=== PATIENT | female | born 1955 | race Caucasian/White ===

== ENCOUNTER 2017-05-16 08:46 | Outpatient (CLI) | payer BC | END 2017-05-16 08:47 | disposition home or self-care (01) | LOC: BICMAMMO 08:46 | PROVIDERS: ATTEND Family Medicine | DX: N63.10 Unspecified lump in the right breast, unspecified quadrant (principal) | CPT/HCPCS: 77066; G0279 ==

== ENCOUNTER 2018-09-18 13:08 | Outpatient (CLI) | payer BC ==
--- NOTE | 2018-09-18 14:11 | CT ---
Exam: Abdomen CT without contrast Pelvic CT without contrast History: Diverticulitis. Pain. FINDINGS: Abdomen CT: Calcified granuloma in the right lower lobe. Limited evaluation of the aorta due to lack of IV contrast. No evidence of aneurysm. Limited evaluation of the solid organs by the lack of IV contrast. Calcified granulomas are noted in the liver and spleen. Pancreas is unremarkable. Symmetric attenuation of the adrenal glands. No gastrohepatic, retrocrural or periportal lymphadenopathy. No mesenteric mass, lymphadenopathy, free air or free fluid. Limited evaluation of the alimentary canal by the lack of oral contrast. No evidence of small bowel o bstruction. Ileocecal junction is normal. Normal caliber appendix. Scattered fecal material in a nondistended, nondilated colon. Diverticulosis, without evidence of diverticulitis Symmetric attenuation the kidneys. There is moderate dilatation of the right renal pelvis and right r enal calyces. Abrupt transition at the right uteropelvic junction. Right ureter is decompressed without evidence of ureteral calculi. There is a left extrarenal pelvis which is mildly prominent. Th ere is mild dilatation of the left renal calyces. There is abrupt transition at the left ureteropelvic junction. Left ureter is unremarkable and decompressed CT PELVIS: No calcifications in the urinary bladder. No mass, lymphadenopathy, free air or free fluid . Hysterectomy changes are noted. No lytic or blastic lesions in the osseous structures IMPRESSION: Bilateral hydronephrosis, right greater than left. Abrupt transition at the ureteropelvic junction bilaterally. Further evaluation with urology consultation and retrograde IVP may be beneficial. Transcribed Date/Time: 09/18/2018 2:15 PM
== END 2018-09-18 13:09 | disposition home or self-care (01) ==
LOC: SCSCT 13:08
PROVIDERS: ATTEND Family Medicine
DX: R10.84 Generalized abdominal pain (principal); N13.30 Unspecified hydronephrosis
CPT/HCPCS: 74176

== ENCOUNTER 2019-02-19 14:48 | Outpatient (CLI) | payer OTHER, SELFPAY ==
--- NOTE | 2019-02-19 15:37 | MMO ---
Bilateral MAMMO Bilat Screen [facility]. CLINICAL HISTORY: Patient is 63 years old and is seen for screening. The patient has no family history of breast cancer. The patient has no personal history of cancer. VIEWS: The views performed were: bilateral craniocaudal with tomosynthesis and bilateral mediolateral oblique with tomosynthesis. FILMS COMPARED: The present examination has been compared to prior imaging studies performed at [facility] on 04/04/2013, 04/08/2015, 04/05/2016 and 05/16/2017. This study has been interpreted with the assistance of computer-aided detection. MAMMOGRAM FINDINGS: There are scattered fibroglandular densities. Finding 1: There is a stable oval mass with circumscribed margins seen in the right breast. The mass represents a hamartoma. Finding 2: There are benign appearing calcifications seen in both breasts. There are no suspicious masses, suspicious calcifications, or new areas of architectural distortion. IMPRESSION: THERE IS NO MAMMOGRAPHIC EVIDENCE OF MALIGNANCY. A ROUTINE FOLLOW-UP MAMMOGRAM IN 1 YEAR IS RECOMMENDED. THE RESULTS OF THIS EXAM WERE SENT TO THE PATIENT. ACR BI-RADS Category 2 - Benign finding MAMMOGRAPHY NOTE: 1. A negative mammogram report should not delay a biopsy if a dominant of clinically suspicious mass is present. 2. Approximately 10% to 15% of breast cancers are not detected by mammography. 3. Adenosis and dense breasts may obscure an underlying neoplasm. Reported by: WALE FALK MD Electonically Signed: [id number]
== END 2019-02-19 14:49 | disposition home or self-care (01) ==
LOC: BICMAMMO 14:48
PROVIDERS: ATTEND Family Medicine
DX: Z12.31 Encounter for screening mammogram for malignant neoplasm of breast (principal)
CPT/HCPCS: 77063; 77067

== ENCOUNTER 2021-02-22 13:03 | Outpatient (CLI) | payer MEDICARE, OTHER | END 2021-02-22 13:04 | disposition home or self-care (01) | LOC: BICRAD 13:03 | PROVIDERS: ATTEND Family Medicine | DX: J20.9 Acute bronchitis, unspecified (principal) | CPT/HCPCS: 71046 ==

== ENCOUNTER 2021-02-22 13:25 | Outpatient (CLI) | payer MEDICARE, OTHER | END 2021-02-22 13:26 | disposition home or self-care (01) | LOC: BICMAMMO 13:25 | PROVIDERS: ATTEND Family Medicine | DX: Z12.31 Encounter for screening mammogram for malignant neoplasm of breast (principal) | CPT/HCPCS: 77063; 77067 ==

== ENCOUNTER 2023-03-29 14:46 | Outpatient (CLI) | payer MEDICARE, OTHER | END 2023-03-29 14:47 | disposition home or self-care (01) | LOC: BICMAMMO 14:46 | PROVIDERS: ATTEND Family Medicine | DX: Z12.31 Encounter for screening mammogram for malignant neoplasm of breast (principal); Z13.820 Encounter for screening for osteoporosis; M19.90 Unspecified osteoarthritis, unspecified site; M81.0 Age-related osteoporosis without current pathological fracture; M85.89 Other specified disorders of bone density and structure, multiple sites | CPT/HCPCS: 77063; 77067; 77080 ==